=== PATIENT | male | born 1990 | race American Indian/Alaskan Native ===

== ENCOUNTER 2020-07-06 12:14 | Emergency (ER) | payer SELFPAY ==
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
== END 2020-07-06 17:00 ==
LOC: EDBD → ED 12:14
DX: I46.9 Cardiac arrest, cause unspecified (principal)
CPT/HCPCS: 31500; 32551; 36430; 36556; 86850; 86900; 86901; 86920; 99285; P9016